=== PATIENT | female | born 1945 | race Caucasian/White ===

== ENCOUNTER 2017-02-28 06:12 | Day surgery (SDC) | payer MEDICARE, SELFPAY ==
[2017-02-28] MEDS ORDERED: EPINEPHRINE 1 MG/ML AMPUL SQ ONE (10:16)
[2017-02-28] MEDS ORDERED: LIDOCAINE 2% MDV (20MG/ML) 20ML VIAL IV ONE ×2 (10:16→14:00)
[2017-02-28] MEDS ORDERED: NEOMYCIN/POLY./DEXAM OPTH OINT OPTH ONE (10:16)
[2017-02-28] MEDS ORDERED: TETRACAINE HCL 0.5% 15 ML OPTH BTL OPTH ONE (10:16)
[2017-02-28] MEDS ORDERED: PROPOFOL 10 MG/ML VIAL IV ONE (14:00)
--- NOTE | 2017-02-28 15:39 | OP NOTE CHAMES ---
DATE OF PROCEDURE: 02/28/17 PREOPERATIVE DIAGNOSIS: Dense nuclear sclerotic cataract and posterior subcapsular cataract, left eye. POSTOPERATIVE DIAGNOSIS: Dense nuclear sclerotic cataract and posterior subcapsular cataract, left eye. OPERATION: Phacoemulsification of cataractous lens with implantation of intraocular lens. LENS IMPLANT USED: Garcia Model PCB00 + 21.0 diopters. COMPLICATIONS: None. PROCEDURE IN DETAIL: Following a retrobulbar and facial block, the patient was prepped and draped in the usual fashion for eye surgery. A lid speculum was placed in the left eye after which a 2.4 mm tunnel wound was placed at the temporal limbus and dissected into clear cornea. A paracentesis was placed at 2 oclock hours to the left and right of the initial incision and the chamber deepened with Viscoelastic. The keratome was then used to enter the anterior chamber after which the continuous circular capsulorrhexis was accomplished without difficulty using a bent needle and a Utrata forceps. Hydrodissection and hydrodelineation of the lens was performed after which the nucleus of the lens was removed using the Phaco handpiece in the [id number]-[id number] technique. The residual cortical material was irrigated and aspirated from the eye after which the bag and chamber were re-examined. The bag was re-inflated with Viscoelastic and the intraocular lens injected into the capsular bag where it centered well. The Viscoelastic was then copiously irrigated and aspirated from the eye after which the temporal tunnel wound and paracentesis were hydrated and the wounds were examined. They were noted to be watertight. The lid speculum was removed from the eye and the eye patched and shielded. The patient was transferred to the recovery room in satisfactory condition and given an appointment to be reexamined in the clinic later today or as directed by Dr. Gee. Eliot Gee M.D. Date & Time JOB NUMBER: [id number] [facility]TD[facility]
== END 2017-02-28 08:58 | disposition home or self-care (01) ==
LOC: SUR 06:12
PROVIDERS: ATTEND Ophthalmology
DX: H25.12 Age-related nuclear cataract, left eye (principal); H25.042 Posterior subcapsular polar age-related cataract, left eye
CPT/HCPCS: J0171

== ENCOUNTER 2017-03-14 07:35 | Day surgery (SDC) | payer MEDICARE, SELFPAY ==
[2017-03-14] MEDS ORDERED: PHENYLEPHRINE HCL 2.5% OPTH 2ML BTL OP ONE (10:42)
[2017-03-14] MEDS ORDERED: LIDOCAINE 2% MDV (20MG/ML) 20ML VIAL IV ONE ×2 (10:42→12:59)
[2017-03-14] MEDS ORDERED: DICLOFENAC SODIUM 2.5 ML DROPS OPTH ONE (10:42)
[2017-03-14] MEDS ORDERED: PREDNISOLONE ACETATE 1% OPTH 10ML BOTTLE OPTH ONE (10:42)
[2017-03-14] MEDS ORDERED: TETRACAINE HCL 0.5% 15 ML OPTH BTL OPTH ONE (10:42)
[2017-03-14] MEDS ORDERED: TOBRAMYCIN 0.3% OPTH DROP 5 ML BTL OPTH ONE (10:42)
[2017-03-14] MEDS ORDERED: EPINEPHRINE 1 MG/ML AMPUL SQ ONE (10:42)
[2017-03-14] MEDS ORDERED: TROPICAMIDE 1% 15ML BTL OP ONE (10:42)
[2017-03-14] MEDS ORDERED: TRIAMCINOLONE ACET 40 MG/ML VIAL IM ONE (10:42)
[2017-03-14] MEDS ORDERED: NEOMYCIN/POLY./DEXAM OPTH OINT OPTH ONE (10:42)
[2017-03-14] MEDS ORDERED: PROPOFOL 10 MG/ML VIAL IV ONE (12:59)
--- NOTE | 2017-03-14 15:56 | OP NOTE CHAMES ---
DATE OF PROCEDURE: 03/14/17 PREOPERATIVE DIAGNOSIS: Nuclear sclerotic cataract, right eye. POSTOPERATIVE DIAGNOSIS: Nuclear sclerotic cataract, right eye. OPERATION: Phacoemulsification of cataractous lens with implantation of intraocular lens. LENS IMPLANT USED: Garcia Model PCB00 + 21.0 diopters. COMPLICATIONS: None. PROCEDURE IN DETAIL: Following a retrobulbar and facial block, the patient was prepped and draped in the usual fashion for eye surgery. A lid speculum was placed in the right eye after which a 2.4 mm tunnel wound was placed at the temporal limbus and dissected into clear cornea. A paracentesis was placed at 2 oclock hours to the left and right of the initial incision and the chamber deepened with Viscoelastic. The keratome was then used to enter the anterior chamber after which the continuous circular capsulorrhexis was accomplished without difficulty using a bent needle and a Utrata forceps. Hydrodissection and hydrodelineation of the lens was performed after which the nucleus of the lens was removed using the Phaco handpiece in the [id number]-[id number] technique. The residual cortical material was irrigated and aspirated from the eye after which the bag and chamber were re-examined. The bag was re-inflated with Viscoelastic and the intraocular lens injected into the capsular bag where it centered well. The Viscoelastic was then copiously irrigated and aspirated from the eye after which the temporal tunnel wound and paracentesis were hydrated and the wounds were examined. They were noted to be watertight. The lid speculum was removed from the eye and the eye patched and shielded. The patient was transferred to the recovery room in satisfactory condition and given an appointment to be reexamined in the clinic later today or as directed by Dr. Gee. Eliot Gee M.D. Date & Time JOB NUMBER: [id number] [facility]
== END 2017-03-14 10:13 | disposition home or self-care (01) ==
LOC: SUR 07:35
PROVIDERS: ATTEND Ophthalmology
DX: H25.11 Age-related nuclear cataract, right eye (principal)
CPT/HCPCS: 66984; 00142; J3301; J0171

== ENCOUNTER 2017-10-28 10:44 | Emergency (ER) | payer MEDICARE, SELFPAY ==
--- NOTE | 2017-10-28 11:04 | Emergency Department Record ---
History of Present Illness - General Chief Complaint: Abdominal Pain Stated Complaint: ABD PAIN Time Seen by Provider: 10/28/17 11:03 Source: Patient Mode of Arrival: Ambulatory Limitations: No limitations - History of Present Illness Initial Comments: The patient is here due to a 3 day hx of intermittent R lower quad AP. The pain is sharp and crampy at times and was initially improving with ASA. She has had some nausea with the pain but no vomiting for the last 2 days. Additionally she denies any back pain or dysuria. MD Complaint: Abdominal pain Onset/Timin -: Days(s) Location: RLQ Radiation: None Migration to: No migration Severity: Mild Quality: Cramping, Sharp Consistency: Constant Improves With: Nothing Worsens With: Nothing Associated Symptoms: Nausea - Related Data Patient : No Previous Rx's Medication Instructions Recorded Acetaminop W/ Codeine 300/30Mg 1 tab PO Q6H #15 tab 10/28/17 [Tylenol #3] Allergies Allergy/AdvReac Type Severity Reaction Status Date / Time No Known Drug Allergies Allergy Verified 10/28/17 11:00 Travel Screening - Travel/Exposure Within Last 30 Days Have you traveled within the last 30 days?: No Review of Systems Constitutional: Denies: Chills, Fever Eyes: Denies: Eye discharge ENT: Denies: Congestion Respiratory: Denies: Cough, Dyspnea Past Medical History - SOCIAL HISTORY Smoking Status: Never smoker Alcohol Use: None Drug Use: None - RESPIRATORY Hx Respiratory Disorders: No - CARDIOVASCULAR Hx Cardio Disorders: Yes Hx Deep Vein Thrombosis: Yes Hx Vascular Disease: Yes (brain aneurysm 2013) - NEURO Hx Neuro Disorders: Yes Hx Dizziness: Yes ("comes & goes") Hx Headaches: Yes (occasional) Hx Weakness: Yes (alittle on right side) Comment:: after brain sx had "symptoms of a stroke"-rt sided weaker-"short term memor - GI Hx GI Disorders: Yes Hx Reflux: Yes Hx Hiatal Hernia: Yes - Hx Genitourinary Disorders: No - ENDOCRINE Hx Endocrine Disorders: No - MUSCULOSKELETAL Hx Musculoskeletal Disorders: Yes Hx Arthritis: Yes Hx Osteoporosis: Yes - PSYCH Hx Psych Problems: No - HEMATOLOGY/ONCOLOGY Hx Hematology/Oncology Disorders: No Family Medical History Any Significant Family History?: Yes Hx Diabetes: Grandparents Hx Heart Disease: Father, Grandparents Physical Exam - General General Appearance: Alert, Cooperative, No acute distress - Head Head exam: Atraumatic, Normocephalic, Normal inspection - Eye Eye exam: Normal appearance, PERRL - Neck Neck exam: Normal inspection, Full ROM. negative: Tenderness - Respiratory Respiratory exam: Normal lung sounds bilaterally. negative: Respiratory distress - Cardiovascular Cardiovascular Exam: Regular rate, Normal rhythm, Normal heart sounds - GI/Abdominal GI/Abdominal exam: Soft, Tenderness (There is mild tenderness in the R lower Quad near the inguinal ligament. There are no masses or lesions identified.). negative: Rebound, Rigid - Extremities Extremities exam: Normal inspection, Full ROM, Normal capillary refill. negative: Tenderness Course Vital Signs 10/28/17 10:57 Temperature 98.1 F Pulse Rate 95 H Respiratory 20 Rate Blood Pressure 135/89 Pulse Ox 94 L - Reevaluation(s) Reevaluation #1: The patient is doing much better. She denies any pain or discomfort in the RLQ. There is mild R flank pain but no nausea, vomiting, or diarrhea. I did discuss the CT report with the 3mm R UVJ stone with the patient and and the need for F/U. 10/28/17 13:31 Reevaluation #2: The patient is doing a lot better. Her pain has completely resolved and she is feeling much better. I again did discuss the plan with the patient's and the need for F/U. 10/28/17 14:03 Medical Decision Making - Data Complexity MDM Data: Labs Ordered and/or Reviewed, X-Ray Ordered and/or Reviewed - Lab Data Result diagrams: 10/28/17 11:00 10/28/17 11:00 - Radiology Data Radiology results: Report reviewed (CT: 3 mm R UVJ stone with mild to mod hydro. ) Disposition Disposition: Discharge Clinical Impression: Ureteral stone with hydronephrosis Disposition: Home, Self-Care Condition: (2) Stable Instructions: Ureteral Stones (ED) Additional Instructions: Please drink plenty of fluids and use Tylenol or Tylenol # 3 for pain. Please see your PCP for recheck later this week. Return to the ER for any increased pain, fever, or vomiting. Prescriptions: Acetaminop W/ Codeine 300/30Mg [Tylenol #3] 1 tab PO Q6H #15 tab Forms: Patient Portal Access Time of Disposition: 14:05 Quality - Quality Measures Quality Measures: N/A - Blood Pressure Screening View Details: Yes Does Patient Have Any of the Following: No Blood Pressure Classification: Pre-Hypertensive BP Reading Systolic Measurement: 138 Diastolic Measurement: 70 Screening for High Blood Pressure: < Pre-Hypertensive BP, F/U Documented > [ G8950] Pre-Hypertensive Follow-up Interventions: Referral to alternative/primary care provider.
[2017-10-28] MEDS ORDERED: ONDANSETRON HCL IV 4 MG/2 ML VIAL IV ONE (11:07)
[2017-10-28] MEDS ORDERED: 0.9 % SODIUM CHLORIDE 1,000 ML BAG IV ONE ×2 (11:07→13:20)
[2017-10-28 11:20] LABS: BASO % 0.3 % (0-6); EOS % 0.1 % (0-6); GRAN % 77.2 % (47-80); HEMATOCRIT 43.3 % (35.0-47.0); HEMOGLOBIN 14.7 gm/dl (11.6-16.0); LYMPH % 11.7 % (16-45); MEAN CELL VOLUME 91.4 fl (81-97); MEAN CORPUSCULAR HGB CONC 33.9 g/dl (32-36); MEAN PLATELET VOLUME 10.3 fl (7.4-10.4); MONO % 10.7 % (0-9); PLATELET COUNT 319 K/uL (130-400); RED BLOOD COUNT 4.74 M/uL (3.80-5.40); RED CELL DISTRIBUTION WIDTH 13.6 % (11.5-14.5); WHITE BLOOD COUNT W/O DIFF 9.2 K/uL (4.2-12.2)
[2017-10-28 11:35] LABS: BLOOD UREA NITROGEN 16 mg/dL (8-23); CREATININE 1.1 mg/dL (0.5-0.9); EST GLOMERULAR FILTRATION RATE 52 mL/min
[2017-10-28 11:36] LABS: TOTAL PROTEIN 7.6 g/dL (6.6-8.7)
[2017-10-28 11:36] LABS: URINE APPEARANCE CLEAR; URINE BILIRUBIN NEGATIVE (NEGATIVE); URINE BLOOD NEGATIVE (NEGATIVE); URINE COLOR YELLOW; URINE GLUCOSE (UA) NEGATIVE (NEGATIVE); URINE KETONE TRACE (NEGATIVE); URINE LEUKOCYTE ESTERASE NEGATIVE (NEGATIVE); URINE NITRITE NEGATIVE (NEGATIVE); URINE PROTEIN NEGATIVE (NEGATIVE); URINE UROBILINOGEN 0.2 E.U./dL (0.20 - 1.00)
[2017-10-28 11:38] LABS: GLUCOSE,RANDOM 124 mg/dL (74-109)
[2017-10-28 11:40] LABS: ALBUMIN 4.1 g/dL (4.0-5.0); ALT/SGPT 11 U/L (<33); AST/SGOT 17 U/L (10.0-35.0)
[2017-10-28 11:41] LABS: ALKALINE PHOSPHATASE 79 U/L (35-104); LIPASE 21 U/L (13-60)
[2017-10-28 11:42] LABS: BILIRUBIN,DIRECT < 0.2 mg/dL (0-0.3)
[2017-10-28] MEDS ORDERED: MORPHINE SULFATE 5 MG/ML PFS IVP ONE ×2 (12:52→13:32)
--- NOTE | 2017-10-28 13:43 | CT SCAN REPORT ---
EXAM: CT OF THE ABDOMEN AND PELVIS WITHOUT CONTRAST HISTORY: RIGHT LOWER QUADRANT PAIN. TECHNIQUE: Sequential axial images were obtained from the diaphragms through the ischiorectal fossa without intravenous or oral contrast administration. FINDINGS: There is an intrathoracic stomach with possible volvulus. Nonopacified liver, gallbladder, pancreas, and spleen appear normal. The adrenal glands appear normal. There is a 3 mm passing stone at the right ureterovesical junction. This produces mild right hydronephrosis. The small and large bowels appear normal. The uterus and adnexal structures appear normal. There is osteopenia. IMPRESSION: 1. 3 MM PASSING STONE AT THE RIGHT URETEROVESICAL JUNCTION. THIS PRODUCES MILD RIGHT HYDRONEPHROSIS. 2. INTRATHORACIC STOMACH WITH POSSIBLE VOLVULUS. JOB [facility]BER: [id number] [facility]
== END 2017-10-28 14:23 | disposition home or self-care (01) ==
LOC: ER 10:44
DX: N13.2 Hydronephrosis with renal and ureteral calculous obstruction (principal); R10.31 Right lower quadrant pain; R11.0 Nausea
CPT/HCPCS: 99284 ×2; 96374; 96361; 83690; 85025; 80076; 80048; 81003; 74176; J2270; J7030

== ENCOUNTER 2018-01-05 10:14 | Emergency (ER) | payer MEDICARE, SELFPAY ==
[2018-01-05] MEDS ORDERED: PROPARACAINE HCL OPTH 15ML BTL OPTH ONE (10:22)
--- NOTE | 2018-01-05 10:49 | Emergency Department Record ---
History of Present Illness - General Chief complaint: Eye Problem Stated complaint: BROKEN BLOOD VESSEL IN EYE Time Seen by Provider: 01/05/18 10:41 Source: Patient Mode of Arrival: Ambulatory - History of Present Illness Initial comments: patient was shampooing her hair yesterday and her right eye was hurting for a minute. When she looked into the mirror she saw a red spot on the white part of the eye. chief complaint: Eye redness Onset/Timin -: Days(s) Onset Description: Sudden Location: Right eye Place: Home If Injury: None Consistency: Constant Associated Symptoms: None Treatments Prior to Arrival: None - Related Data Home Medications Medication Instructions Recorded Confirmed Last Taken Aspirin [Children's Aspirin] 81 mg PO DAILY 01/05/18 01/05/18 Unknown Allergies Allergy/AdvReac Type Severity Reaction Status Date / Time No Known Drug Allergies Allergy Verified 10/28/17 11:00 Travel Screening - Travel/Exposure Within Last 30 Days Have you traveled within the last 30 days?: No Review of Systems Reviewed: No additional complaints except as noted below Constitutional: Reports: As per HPI. Denies: Chills, Fever, Malaise, Night sweats, Weakness, Weight change Eyes: Reports: As per HPI, Other (red spot on the whit of the right eye.). Denies: Eye discharge, Eye pain, Photophobia, Vision change ENT: Reports: As per HPI. Denies: Congestion, Dental pain, Ear pain, Epistaxis , Hearing loss, Throat pain Respiratory: Reports: As per HPI. Denies: Cough, Dyspnea, Hemoptysis, Stridor, Wheezes Cardiovascular: Reports: As per HPI. Denies: Arrhythmia, Chest pain, Dyspnea on exertion, Edema, Murmurs, Orthopnea, Palpitations, Paroxysmal nocturnal dyspnea, Rheumatic Fever, Syncope Endocrine: Reports: As per HPI. Denies: Fatigue, Heat or cold intolerance, Polydipsia, Polyuria Gastrointestinal: Reports: As per HPI. Denies: Abdominal pain, Constipation, Diarrhea, Hematemesis, Hematochezia, Melena, Nausea, Vomiting Genitourinary: Reports: As per HPI. Denies: Abnormal menses, Discharge, Dyspareunia, Dysuria, Frequency, Hematuria, Incontinence, Retention, Urgency Musculoskeletal: Reports: As per HPI. Denies: Arthralgia, Back pain, Gout, Joint swelling, Myalgia, Neck pain Skin: Reports: As per HPI. Denies: Bruising, Change in color, Change in hair/ nails, Lesions, Pruritus, Rash Neurological: Reports: As per HPI. Denies: Abnormal gait, Confusion, Headache, Numbness, Paresthesias, Seizure, Tingling, Tremors, Vertigo, Weakness Psychiatric: Reports: As per HPI. Denies: Anxiety, Auditory hallucinations, Depression, Homicidal thoughts, Suicidal thoughts, Visual hallucinations Hematological/Lymphatic: Reports: As per HPI. Denies: Anemia, Blood Clots, Easy bleeding, Easy bruising, Swollen glands Past Medical History - SOCIAL HISTORY Smoking Status: Never smoker Alcohol Use: None Drug Use: None - RESPIRATORY Hx Respiratory Disorders: No - CARDIOVASCULAR Hx Cardio Disorders: Yes Hx Deep Vein Thrombosis: Yes Hx Vascular Disease: Yes (brain aneurysm 2013) - NEURO Hx Neuro Disorders: Yes Hx Dizziness: Yes ("comes & goes") Hx Headaches: Yes (occasional) Hx Weakness: Yes (alittle on right side) Comment:: after brain sx had "symptoms of a stroke"-rt sided weaker-"short term memor - GI Hx GI Disorders: Yes Hx Reflux: Yes Hx Hiatal Hernia: Yes - Hx Genitourinary Disorders: No - ENDOCRINE Hx Endocrine Disorders: No - MUSCULOSKELETAL Hx Musculoskeletal Disorders: Yes Hx Arthritis: Yes Hx Osteoporosis: Yes - PSYCH Hx Psych Problems: No - HEMATOLOGY/ONCOLOGY Hx Hematology/Oncology Disorders: No Family Medical History Any Significant Family History?: Yes Hx Diabetes: Grandparents Hx Heart Disease: Father, Grandparents Physical Exam - General General Appearance: Alert, Oriented x3, Cooperative, No acute distress - Head Head exam: Normal inspection - Eye Eye exam: PERRL, Other (subconjunctival hemorrhage right eye medial side) Pupils: Normal accommodation - ENT ENT exam: Normal exam, Mucous membranes moist, Normal external ear exam, Normal orophraynx, TM's normal bilaterally Ear exam: Normal external inspection. negative: External canal tenderness Nasal Exam: Normal inspection. negative: Discharge, Sinus tenderness Mouth exam: Normal external inspection, Tongue normal Teeth exam: Normal inspection. negative: Dental caries Throat exam: Normal inspection. negative: Tonsillar erythema, Tonsillar exudate - Neck Neck exam: Normal inspection, Full ROM. negative: Tenderness - Respiratory Respiratory exam: Normal lung sounds bilaterally. negative: Respiratory distress - Cardiovascular Cardiovascular Exam: Regular rate, Normal rhythm, Normal heart sounds - GI/Abdominal GI/Abdominal exam: Soft, Normal bowel sounds. negative: Tenderness - Rectal Rectal exam: Deferred - exam: Deferred - Extremities Extremities exam: Normal inspection, Full ROM, Normal capillary refill. negative: Tenderness - Back Back exam: Reports: Normal inspection, Full ROM. Denies: Muscle spasm, Rash noted, Tenderness - Neurological Neurological exam: Alert, Normal gait, Oriented X3, Reflexes normal - Psychiatric Psychiatric exam: Normal affect, Normal mood - Skin Skin exam: Dry, Intact, Normal color, Warm Course Vital Signs 01/05/18 10:17 Temperature 97.6 F Pulse Rate 113 H Respiratory 18 Rate Blood Pressure 147/92 Pulse Ox 95 Disposition Clinical Impression: Subconjunctival hemorrhage of right eye Disposition: Home, Self-Care Condition: (1) Good Instructions: Subconjunctival Hemorrhage (ED) Additional Instructions: follow up with Dr. Franco or [facility] in one week. stop aspirin for one week Time of Disposition: 10:53 Quality - Quality Measures Quality Measures: N/A - Blood Pressure Screening Does Patient Have Any of the Following: No Blood Pressure Classification: Hypertensive Reading Systolic Measurement: 147 Diastolic Measurement: 92 Screening for High Blood Pressure: < Pre-Hypertensive BP, F/U Documented > [ G8950] Pre-Hypertensive Follow-up Interventions: Referral to alternative/primary care provider.
== END 2018-01-05 11:10 | disposition home or self-care (01) ==
LOC: ER 10:14
DX: H11.31 Conjunctival hemorrhage, right eye (principal)
CPT/HCPCS: 99282